=== PATIENT | female | born 1970 | race Two or more races ===

== ENCOUNTER 2017-02-07 20:22 | Emergency (ER) | payer MEDICAID ==
[~2017-02-07] VITALS: Ht 162.6 cm; Wt 59.9 kg
[2017-02-07 20:34] VITALS: BP 142/67
[2017-02-07 20:56] LABS: Urine Bilirubin Negative (Negative); Urine Blood Negative /uL (Negative); Urine Color Yellow (Yellow); Urine Glucose Normal (Normal); Urine Ketone Negative (Negative); Urine Nitrite Negative (Negative); Urine RBC <1 /hpf (0 - 4); Urine Squamous Epithelial Cell FEW /hpf (<5); Urine Urobilinogen Normal (Negative)
[2017-02-07 21:14] LABS: Basophils # (auto) 0 uL; Basophils % (auto) 0.6 % (0.0-2.0); Eosinophils # (auto) 0.1 uL; Eosinophils % (auto) 1.1 % (0.0-7.0); Hematocrit 35.1 % (36.0-46.0); Lymphocytes # (auto) 2.4 uL; Lymphocytes % (auto) 42.9 % (10.0-50.0); Mean Corpuscular Hemoglobin 30.7 pg (28.0-32.0); Mean Corpuscular Hgb Conc. 34.2 g/dL (32.0-36.0); Mean Corpuscular Volume 89.9 fL (80.0-100.0); Mean Platelet Volume 8.4 fL (6.9-10.8); Monocytes # (auto) 0.4 uL; Monocytes % (auto) 7.8 % (0.0-12.0); Neutrophils # (auto) 2.6 uL; Neutrophils % (auto) 47.6 % (37.0-80.0); Nucleated Red Blood Cells % 0.1 %; Platelet Count (auto) 195 10^3/uL (140-450); Red Cell Distribution Width 12.7 % (11.8-14.3); White Blood Cell 5.5 10^3/uL (4.4-10.8)
[2017-02-07 21:30] LABS: Albumin 3.7 g/dL (3.4-5.0); Calcium 8.2 mg/dL (8.5-10.1); Potassium 3.3 mmol/L (3.5-5.1)
[2017-02-07 21:32] LABS: BUN/Creatinine Ratio 13.2
[2017-02-07 21:35] LABS: Bilirubin, Total 0.2 mg/dL (0.2-1.0); Total Protein 6.9 g/dL (6.4-8.2)
[2017-02-08] MEDS ORDERED: traMADol HCL 50 MG TAB PO ONE (03:15)
== END 2017-02-08 03:32 | disposition home or self-care (01) ==
LOC: ER 20:29
DX: M41.84 Other forms of scoliosis, thoracic region (principal); M79.1 Myalgia
CPT/HCPCS: 36415; 72070; 80053; 81001; 81025; 85025